=== PATIENT | female | born 1955 | race African-American/Black ===

== ENCOUNTER 2017-04-18 09:56 | Emergency (ER) | payer MEDICARE, OTHER ==
[~2017-04-18] VITALS: Ht 175.3 cm; Wt 100.0 kg
[~2017-04-18 09:56] MED LIST: ESTR0.6256 VAG; HYDR-3498 PO; LORA10TA3 PO; MICO1KIT VG; MORP15TA92 PO; OMEP40CA6 PO; PRAV80TA27 PO; SENN8.6C3 PO; SPIR50TA31 PO; TRAZ300T15 PO; UDREG PO; [UNRECOGNIZED DRUG - CODE] PO; [UNRECOGNIZED DRUG - CODE] PO
[2017-04-18 10:02] VITALS: Ht 175.3 cm; Wt 100.0 kg
[2017-04-18] MEDS ORDERED: HYDROCODONE/APAP (5/325) TAB PO ONE (11:00)
[2017-04-18] MEDS ORDERED: HYDR-906 PO (11:05)
--- NOTE | 2017-04-18 11:21 | ERD ---
ER Documentation Chief Complaint Date/Time DATE: 04/18/17 TIME: 11:14 Chief Complaint Complains of severe lower abdominal pain x 1 week HPI 61-year-old female with a history of diabetes presenting to the ER with complaints of pain around her vaginal area with sores. She has had the symptoms for about 1 week. She went to her primary medical clinic where she saw women's health. I spoke with her clinic to see what was done. Reportedly the patient had testing done for herpes which was negative as well as syphilis which was negative. She was referred to a tool lapper hand but the referral has not gone through yet. The patient states that she was treated with topical steroids, topical antivirals, and oral antibiotics with no significant improvement. Her pain is a 9 out of 10, sharp, constant, nonradiating. It is located on the right side of her pubic area and her groin. She is sexually active with one partner for the past 10 years. She states she was also checked for gonorrhea and chlamydia and states these were negative. She denies any fever, chills, dysuria, hematuria, problems with bowel movements, nausea, or vomiting. ROS All systems reviewed and are negative except as per history of present illness. Medications Home Meds Active Scripts Hydrocodone/Acetaminophen ([place] 5-325 Tablet) 1 Each Tablet, 1 TAB PO Q6H Y for PAIN, #7 TAB Prov:NAVYA SIDHU MD 04/18/17 Hydrocodone Bit-Acetaminophen* ([place]*) 5-325 Mg Tab, 1 TAB PO Q6 Y for PAIN, # 10 TAB Prov:MIRTA WATSON 01/13/15 Reported Medications Loratadine* (Loratadine*) 10 Mg Tablet, 10 MG PO DAILY, #2 02/28/13 Mag Hydrox/Al Hydrox/Simeth (Mylanta Double-Strength Liq) 710 Ml Oral.susp, 710 ML PO Q4 02/28/13 Metoclopramide* (Reglan*) 10 Mg/10 Ml Soln, 10 MG PO TID 02/28/13 Morphine Sulfate* (Ms Contin*) 15 Mg Tablet.sa, 15 MG PO [id number] 02/28/13 Morphine Sulfate* (Morphine*) 10 Mg/1 Ml Cartridge, 10 MG PO Q4NARC 02/28/13 Omeprazole* (Omeprazole*) 40 Mg Capsule.dr, 40 MG PO DAILY 02/28/13 Pravastatin Sodium* (Pravastatin Sodium*) 80 Mg Tablet, 80 MG PO DAILY 02/28/13 Trazodone Hcl* (Trazodone Hcl*) 300 Mg Tablet, 300 MG PO HS 02/28/13 Spironolactone* (Aldactone*) 50 Mg Tablet, 50 MG PO DAILY 02/28/13 Sennosides* (Senna*) 8.6 Mg Capsule, 8.6 MG PO HS, #2 02/28/13 Miconazole/Skin Cleanser No.17 (Monistat 1 Combination Pack) 1 Each Kit, 1 EACH VG HS 02/28/13 Estrogens,Conjugated* (Premarin*) 0.625 Mg Tablet, 0.625 MG VAG 2X/WEEK 02/28/13 Allergies Allergies: Coded Allergies: Sulfa (Sulfonamide Antibiotics) (Verified Allergy, Severe, 02/28/13) aspirin (Verified Allergy, Severe, 02/28/13) ibuprofen (Verified Allergy, Severe, 02/28/13) Uncoded Allergies: ASA (Allergy, Severe, ANAPHYLAXIS, 02/24/13) IBUPROPHEN (Allergy, Severe, ANAPHYLAXIS, 02/24/13) SULFA (Allergy, Severe, ANAPHYLAXIS, 02/24/13) PMhx/Soc History of Surgery: Yes (surgery for SBO, fibroids removed from uterus, hysterectomy ) Anesthesia Reaction: Yes ("I think I had it when I had my back surgery." ) Hx Neurological Disorder: No (neuropathy, migraines ) Hx Respiratory Disorders: Yes (asthma, bronchitis ) Hx Cardiac Disorders: Yes (HTN, dyslipidemia ) Hx Psychiatric Problems: Yes (anxiety, depression ) Hx Miscellaneous Medical Probl: Yes (appendectomy, L4-L5 diskectomy and herniation removal, sciatica ) Hx Alcohol Use: Yes (socially) Hx Substance Use: No Hx Tobacco Use: No Smoking Status: Unknown if ever smoked FmHx Family History: No diabetes Physical Exam Vitals Vital Signs Date Time Temp Pulse Resp B/P Pulse Ox O2 Delivery O2 Flow Rate FiO2 04/18/17 10:02 97.8 75 20 144/83 98 Physical Exam Const: Well-appearing, no apparent distress Head: Atraumatic Eyes: Normal Conjunctiva ENT: Normal External Ears, Nose and Mouth. Neck: Full range of motion..~ No meningismus. Resp: Clear to auscultation bilaterally Cardio: Regular rate and rhythm, no murmurs Abd: Midline and transverse lower abdominal surgical scars noted. Soft, non tender, non distended. Normal bowel sounds Exam: : External right genital area with two 1-2 cm ulcers without discharge, surrounding erythema or induration. No fluctuance. smaller more superficial healing ulcers also noted. Discharge: None Skin: No petechiae or other rashes Back: No midline or flank tenderness Ext: No cyanosis, or edema Neur: Awake and alert Psych: Normal Mood and Affect Results 24 hrs Current Medications Medications (Trade) Dose Ordered Sig/Christi Route PRN Reason Start Time Stop Time Status Last Admin Dose Admin Acetaminophen/ Hydrocodone Bitart ([place] (5/325)) 1 tab ONCE ONCE PO 04/18/17 11:00 04/18/17 11:01 DC 04/18/17 10:46 Azithromycin (Zithromax) 1,000 mg ONCE ONCE PO 04/18/17 11:30 04/18/17 11:31 04/18/17 11:12 Procedures/MDM Patient is presenting with multiple genital ulcers. She has already been tested for syphilis and herpes which were negative. She is afebrile, nontoxic, with no signs of acute surgical abdomen on exam. [place] was given for pain as she is allergic to NSAIDs. I spoke with her primary care doctor, Dr. Bui, who confirmed information the patient told me. He states that the referral to dermatology is pending. Per his records, her ulcerative lesions are actually improving in appearance. Based on my evaluation, I have a concern for possible chancroid. Patient will be treated with azithromycin 1 g p.o. 1 here. I discussed my suspicion with the patient but told her I cannot confirm this in the ER today. She still needs to follow-up with dermatology if her ulcers persist. She was told to follow-up in 2 days with her primary care doctor regarding this referral. I will discharge her with a few pills of [place] for her pain. Return precautions were given. Patient was discharged in a stable condition. Departure Diagnosis: Primary Impression: Ulcer of genital labia Condition: Stable Additional Instructions: I suspect you possibly have chancroid. You have been treated for this with Azithromycin one dose in the ER today. However, I cannot diagnose this definitively in the ER. You need to see the Safety Grooving Machine Operator. Your primary doctor has put in a referral for you to follow up with one. Call your PCP on Thursday to follow up on the status of the referral. Chancroid What is chancroid? Chancroid is a highly contagious yet curable sexually transmitted disease (STD) caused by the bacteria Haemophilus ducreyi [zxu-EL-exqp-us DOO-gil]. Chancroid causes ulcers, usually of the genitals. Swollen, painful lymph glands, or inguinal buboes [in-GWEEN-al BEW-chiquis], in the groin area are often associated with chancroid. Left untreated, chancroid may facilitate the transmission of HIV. How common is it? The prevalence of chancroid has declined in the [place]. When infection does occur, it is usually associated with sporadic outbreaks. Worldwide, chancroid appears to have declined as well, although infection might still occur in some regions of [place] and the [place]. Chancroid, as well as genital herpes and syphilis, is a risk factor in the transmission of HIV infection. A definitive diagnosis of chancroid requires the identification of H. ducreyi on special culture media that is not widely available from commercial sources; even when these media are used, sensitivity is less than 80 percent. No FDA- cleared PCR test for H. ducreyi is available in the [place], but such testing can be performed by clinical laboratories that have developed their own PCR test and have conducted a CLIA verification study. The combination of a painful genital ulcer and tender suppurative inguinal adenopathy suggests the diagnosis of chancroid. A probable diagnosis of chancroid, for both clinical and surveillance purposes, can be made if all of the following criteria are met: 1) the patient has one or more painful genital ulcers; 2) the patient has no evidence of T. pallidum infection by darkfield examination of ulcer exudate or by a serologic test for syphilis performed at least seven days after onset of ulcers; 3) the clinical presentation, appearance of genital ulcers and, if present, regional lymphadenopathy are typical for chancroid; and 4) a test for HSV performed on the ulcer exudate is negative. How do people get chancroid? Chancroid is transmitted in two ways: sexual transmission through yiqv-ci-hnii contact with open sore(s). non-sexual transmission when pus-like fluid from the ulcer is moved to other parts of the body or to another person. A person is considered to be infectious when ulcers are present. There has been no reported disease in infants born to women with active chancroid at time of delivery. What are the signs or symptoms of chancroid? Symptoms usually occur within four days to ten days from exposure. They rarely develop earlier than three days or later than ten days. The ulcer begins as a tender, elevated bump, or papule, that becomes a pus- filled, open sore with eroded or ragged edges. The ulcer is soft to the touch (unlike a syphilis chancre that is hard or rubbery). The term soft chancre is frequently used to describe the chancroid sore. The ulcers can be very painful in men but women are often unaware of them. Because chancroid is often asymptomatic in women, they may be unaware of the lesion(s). Painful lymph glands may occur in the groin, usually only on one side; however, they can occur on both sides. How is chancroid diagnosed? Diagnosis is made by isolating the bacteria Hemophilus ducreyi in a culture from a genital ulcer. The chancre is often confused with syphilis, herpes or lymphogranuloma venereum; therefore, it is important that your health care provider rule these diseases out. A Gram stain to identify H. ducreyi is possible but can be misleading because of other organisms found in most genital ulcers. What is the treatment for chancroid? Successful treatment for chancroid cures the infection, resolves the clinical symptoms, and prevents transmission to others. In advanced cases, scarring can result, despite successful therapy. Antibiotics used to treat chancroid include; Azithromycin 11 g orally, Ceftriaxone 250 mg intramuscularly (IM), Ciprofloxacin 500 mg orally or Erythromycin 500 mg orally. Ciprofloxacin is contraindicated for pregnent and lactating women. Azithomycin and ceftriaxone offer the advantage of single-dose therapy. Worldwide, several isolates with intermediate resistance to either ciprofloxacin or erythromycin have been reported. However, because cultures are not routinely performed, data are limited regarding the current prevalence of antimicrobial resistance. Follow-up Patients should be re-examined three days to seven days after initiation of therapy. If treatment is successful, ulcers usually improve symptomatically within three days and objectively within seven days after therapy. If no clinical improvement is evident, the clinician must consider whether 1) the diagnosis is correct, 2) the patient is coinfected with another STD, 3) the patient is infected with HIV, 4) the treatment was not used as instructed, or 5 ) the H. ducreyi strain causing the infection is resistant to the prescribed antimicrobial. The time required for complete healing depends on the size of the ulcer; large ulcers might require greater than two weeks. In addition, healing is slower for some uncircumcised men who have ulcers under the foreskin. Clinical resolution of fluctuant lymphadenopathy is slower than that of ulcers and might require needle aspiration or incision and drainage, despite otherwise successful therapy. Although needle aspiration of buboes is a simpler procedure, incision and drainage might be preferred because of reduced need for subsequent drainage procedures. Other Management Considerations Men who are uncircumcised and patients with HIV infection do not respond as well to treatment as persons who are circumcised or HIV-negative. Patients should be tested for HIV infection at the time chancroid is diagnosed. If the initial test results were negative, a serologic test for syphilis and HIV infection should be performed three months after the diagnosis of chancroid. Special Considerations Ciprofloxacin is contraindicated during and . No adverse effects of chancroid on outcome have been reported. How can chancroid be prevented? Abstinence (not having sex) [place] monogamy [having sex with only one uninfected partner] Latex condoms for vaginal, oral and anal sex. Using latex condoms may protect the penis or vagina from infection, but does not protect other areas such as the scrotum or anal area. Chancroid lesions can occur in genital areas that are covered or protected by a latex condom, but may occur in areas that are not covered or protected by a condom. Latex condoms, when used consistently and correctly, can reduce the risk of chancroid, genital herpes, syphilis, and genital warts, only when the infected areas are covered or protected by the condom. If you do get chancroid, avoid contact with the infected area to prevent chance of spreading the infection to other parts of the body. Why worry? Chancroid has been well established as a cofactor for HIV transmission. Moreover , persons with HIV may experience slower healing of chancroid, even with treatment, and may need to take medications for a longer period of time. Complications from chancroid include: In 50 percent of cases, the lymph node glands in the groin become infected within five to eight days of appearance of initial sores. Glands on one side become enlarged, hard, painful and fuse together to form a bubo (BEW-stefan), an inflammation and swelling of one or more lymph nodes with overlying red skin. Surgical drainage of the bubo may be necessary to relieve pain. Ruptured buboes are susceptible to secondary bacterial infections. In uncircumcised males, new scar tissue may result in phimosis [constriction so the foreskin cannot be retracted over the head of the penis]. Circumcision may be required to correct this. What should I tell my partner? You should talk to your partner as soon as you learn you have chancroid. Telling a partner can be hard, but it's important that you talk to your partner as soon as possible so she or he can get treatment. How do I address the subject with my health care provider? If you have a genital ulcer or painful, swollen lymph nodes, you need to talk to your doctor about whether or not you should be tested. However, it's important to remember that some people, usually women, are asymptomatic. If you are having unprotected sex or discover that your partner is having unprotected sex with another person, you may want to ask your doctor about being tested for STDs. NAVYA SIDHU MD Apr 18, 2017 11:21
[2017-04-18] MEDS ORDERED: AZITHROMYCIN 250 MG TAB PO ONE (11:30)
== END 2017-04-18 11:14 | disposition home or self-care (01) ==
LOC: E/R 09:56
DX: R10.30 Lower abdominal pain, unspecified (principal); J45.909 Unspecified asthma, uncomplicated; I10 Essential (primary) hypertension
CPT/HCPCS: 99283

== ENCOUNTER 2018-04-03 08:47 | Emergency (ER) | END 2018-04-03 12:46 | disposition home or self-care (01) ==

== ENCOUNTER 2019-02-08 10:56 | Emergency (ER) | payer MEDICARE, OTHER ==
[~2019-02-08] VITALS: Ht 154.9 cm; Wt 122.0 kg
[~2019-02-08 10:56] MED LIST changes: +ANR PR; +CYCL10TA7 PO; +HYDR-3980 PO; +HYDR-4011 PO; -SPIR50TA31 PO; +SPIR50TA4 PO
[2019-02-08 10:59] VITALS: Ht 154.9 cm; Wt 122.0 kg
[2019-02-08] MEDS ORDERED: ONDANSETRON (ODT) 4 MG TAB ODT STA (11:23)
[2019-02-08] MEDS ORDERED: HYDROCODONE/APAP (5/325) TAB PO ONE (11:30)
[2019-02-08 13:27] VITALS: BP 127/81; PULSE 81; RESP 18
--- NOTE | 2019-02-08 14:10 | ERD ---
ER Documentation Chief Complaint Chief Complaint right ankle pain x 3 days, no injury had surgery 3 years ago HPI 63-year-old female presenting with right ankle pain x3 days. Patient had surgery 3 years ago she states suddenly her ankle started hurting. She denies any falls or injuries. She is concerned she has a blood clot. She denies other medical problems. NKDA. Surgical history: ankle. Social history denies ROS All systems reviewed and are negative except as per history of present illness. Medications Home Meds Active Scripts Cyclobenzaprine Hcl* (Cyclobenzaprine Hcl*) 10 Mg Tablet, 10 MG PO TID, #5 TAB Prov:JANELL ASKEW PA-C 02/08/19 Hydrocodone/Acetaminophen ([place] 5-325 Tablet) 1 Each Tablet, 1 TAB PO Q6H PRN for PAIN, #7 TAB Prov:JANELL ASKEW PA-C 02/08/19 Hard Fat/Phenylephrine* (Anusol*) 1 Supp Supp, 1 SUPP [place] Q12, #14 SUPP Prov:TITO CASTRO DO 04/03/18 Hydrocodone/Acetaminophen ([place] 10-325 Tablet) 1 Each Tablet, 1 TAB PO Q6H PRN for PAIN, #20 TAB Prov:CHANEL CASTROSTMARY Alvarez DO 04/03/18 Hydrocodone/Acetaminophen ([place] 5-325 Tablet) 1 Each Tablet, 1 TAB PO Q6H PRN for PAIN, #7 TAB Prov:NAVYA SIDHU MD 04/18/17 Hydrocodone Bit-Acetaminophen* ([place]*) 5-325 Mg Tab, 1 TAB PO Q6 PRN for PAIN, #10 TAB Prov:MIRTA WATSON 01/13/15 Reported Medications Loratadine* (Loratadine*) 10 Mg Tablet, 10 MG PO DAILY, #2 02/28/13 Mag Hydrox/Al Hydrox/Simeth (Mylanta Double-Strength Liq) 710 Ml Oral.susp, 710 ML PO Q4 02/28/13 Metoclopramide* (Reglan*) 10 Mg/10 Ml Soln, 10 MG PO TID 02/28/13 Morphine Sulfate* (Ms Contin*) 15 Mg Tablet.sa, 15 MG PO [id number] 02/28/13 Morphine Sulfate* (Morphine*) 10 Mg/1 Ml Cartridge, 10 MG PO Q4NARC 02/28/13 Omeprazole* (Omeprazole*) 40 Mg Capsule.dr, 40 MG PO DAILY 02/28/13 Pravastatin Sodium* (Pravastatin Sodium*) 80 Mg Tablet, 80 MG PO DAILY 02/28/13 Trazodone Hcl* (Trazodone Hcl*) 300 Mg Tablet, 300 MG PO HS 02/28/13 Spironolactone* (Aldactone*) 50 Mg Tablet, 50 MG PO DAILY 02/28/13 Sennosides* (Senna*) 8.6 Mg Capsule, 8.6 MG PO HS, #2 02/28/13 Miconazole/Skin Cleanser No.17 (Monistat 1 Combination Pack) 1 Each Kit, 1 EACH VG HS 02/28/13 Estrogens,Conjugated* (Premarin*) 0.625 Mg Tablet, 0.625 MG VAG 2X/WEEK 02/28/13 Allergies Allergies: Coded Allergies: Sulfa (Sulfonamide Antibiotics) (Verified Allergy, Severe, 02/08/19) aspirin (Verified Allergy, Severe, 02/08/19) ibuprofen (Verified Allergy, Severe, 02/08/19) Uncoded Allergies: ASA (Allergy, Severe, ANAPHYLAXIS, 02/24/13) IBUPROPHEN (Allergy, Severe, ANAPHYLAXIS, 02/24/13) SULFA (Allergy, Severe, ANAPHYLAXIS, 02/24/13) PMhx/Soc History of Surgery: Yes (surgery for SBO, fibroids removed from uterus, hysterectomy ) Anesthesia Reaction: Yes ("I think I had it when I had my back surgery." ) Hx Neurological Disorder: No (neuropathy, migraines ) Hx Respiratory Disorders: Yes (asthma, bronchitis ) Hx Cardiac Disorders: Yes (HTN, dyslipidemia ) Hx Psychiatric Problems: Yes (anxiety, depression ) Hx Miscellaneous Medical Probl: Yes (appendectomy, L4-L5 diskectomy and herniation removal, sciatica ) Hx Alcohol Use: Yes (socially) Hx Substance Use: No Hx Tobacco Use: No Smoking Status: Never smoker FmHx Family History: No diabetes, No coronary disease, No other Physical Exam Vitals Vital Signs Date Temp Pulse Resp B/P (MAP) Pulse Ox O2 O2 Flow FiO2 Time Delivery Rate 02/08/19 98.5 81 18 127/81 97 Room Air 13:27 (96) 02/08/19 98.3 99 18 132/84 95 10:59 (100) Physical Exam GENERAL: The patient is well-appearing, well-nourished, in no acute distress HEENT: Atraumatic. Conjunctivae are pink. Pupils equal, round, and reactive to light. There is no scleral icterus. Tympanic membranes clear bilaterally. Oropharynx clear. CHEST: Clear to auscultation bilaterally. There are no rales, wheezes or rhon chi. HEART: Regular rate and rhythm. No murmurs, clicks, rubs or gallops. EXTREMITIES: Mild swelling noted to the right ankle with no obvious deformities. Tender to palpation over the right ankle with no erythema. Compartments soft. Pulses intact. NEUROLOGIC: Alert and oriented. Cranial nerves II through XII intact. Motor strength in all 4 extremities with 5 out of 5 strength. Sensation grossly intact. Normal speech and gait. SKIN: There is no apparent rash or petechiae. The skin is warm and dry. Result Diagram: 02/08/19 1137 Results 24 hrs Laboratory Tests Test 02/08/19 11:37 White Blood Count 7.3 10^3/ul Red Blood Count 4.35 10^6/ul Hemoglobin 11.7 g/dl Hematocrit 36.8 % Mean Corpuscular Volume 84.6 fl Mean Corpuscular Hemoglobin 26.9 pg Mean Corpuscular Hemoglobin Concent 31.8 g/dl Red Cell Distribution Width 15.9 % Platelet Count 289 10^3/UL Mean Platelet Volume 9.5 fl Immature Granulocytes % 0.300 % Neutrophils % 42.3 % Lymphocytes % 44.9 % Monocytes % 8.5 % Eosinophils % 3.0 % Basophils % 1.0 % Nucleated Red Blood Cells % 0.0 /100WBC Immature Granulocytes # 0.020 10^3/ul Neutrophils # 3.1 10^3/ul Lymphocytes # 3.3 10^3/ul Monocytes # 0.6 10^3/ul Eosinophils # 0.2 10^3/ul Basophils # 0.1 10^3/ul Nucleated Red Blood Cells # 0.0 10^3/ul Uric Acid 5.4 mg/dl Current Medications Medications Dose Sig/Christi Start Time Status Last (Trade) Ordered Route PRN Stop Time Admin Dose Reason Admin 1 tab ONCE ONCE 02/08/19 DC 02/08/19 Acetaminophen PO 11:30 02/08/19 11:36 / 11:31 Hydrocodone Bitart ([place] (5/325)) Ondansetron 4 mg ONCE STAT 02/08/19 DC 02/08/19 HCl (Zofran ODT 11:23 02/08/19 11:36 Odt) 11:25 Procedures/MDM DIAGNOSTIC IMAGING REPORT Patient: MATEO KENYON : 1955 Age: 63 Sex: F MR #: [id number] DOS: 02/08/19 1123 Ordering MD: LOWELL ASKEW PA-C Location: [facility] Room/Bed: PROCEDURE: XR Right Ankle CLINICAL INDICATION: Pain TECHNIQUE: Standard 3 view radiographs were submitted. COMPARISON: None FINDINGS: Osseous structures: A cortical screw is seen to internally fixed the medial malleolar fracture which appears to be healed. A compression plate and several screws internally fixing a distal fibular fracture which appears to be healed. The hardware appears intact. No acute fracture is evident. Joint spaces: Well maintained with no significant erosions or spurring evident. Soft tissues: There is mild lateral soft tissue prominence. IMPRESSION: 1. Internally fixed healed bimalleolar fractures. 2. The ankle mortise is anatomically maintained. 3. Mild lateral soft tissue prominence. DIAGNOSTIC IMAGING REPORT Patient: MATEO KENYON : 1955 Age: 63 Sex: F MR #: [id number] DOS: 02/08/19 1123 Ordering MD: LOWELL ASKEW PA-C Location: [facility] Room/Bed: PROCEDURE: Ultrasound of the right lower extremity venous system. CLINICAL INDICATION: Right lower extremity pain and swelling. TECHNIQUE: Alcantar scale with and without compression, color doppler, spectral doppler of the venous system of the right lower extremity was performed. Venous augmentation maneuvers were utilized. COMPARISON: No prior studies are available for comparison. FINDINGS: Limitation: Body habitus limits the sensitivity of the study. RIGHT: Common femoral vein: Patent and compressible. Femoral vein: Patent and compressible. Popliteal vein: Patent and compressible. Visualized calf veins: Not visualized. Soft tissues: Normal IMPRESSION: 1. No evidence of deep vein thrombosis. ER Course: I evaluated patient's cures report and patient has a chronic history of substance use. MDM: This 63-year-old female presenting with right ankle pain. I have low suspicion for new acute fracture dislocation. I have low suspicion for abnormalities associated with the hardware. Patient may just have reactive changes noted to her ankle is recommended to follow-up with her primary care doctor. Patient has a long history of drug dependency so I will refrain from writing excessive amounts of controlled substances. I do recommend patient to follow-up with her primary care. Patient is told if symptoms change or worsen to return immediately to the ER. All questions answered at discharge Departure Diagnosis: Primary Impression: Ankle pain Condition: Stable Patient Instructions: Contusion, Foot Referrals: [facility] (PCP) SELVIN PIPER MD [facility] Hours: Thu-Thu 9:00 AM - 5:00 PM Additional Instructions: FOLLOW UP WITH YOUR PRIMARY CARE PHYSICIAN TOMORROW.Return to this facility if you are not improving as expected. JANELL ASKEW PA-C Feb 08, 2019 14:10
== END 2019-02-08 13:00 | disposition home or self-care (01) ==
LOC: FTE 10:56
DX: M25.571 Pain in right ankle and joints of right foot (principal)
CPT/HCPCS: 84560; 85025; 93971